=== PATIENT | female | born 1955 | race Caucasian/White ===

== ENCOUNTER → 2017-10-16 | Outpatient (CLI) | payer OTHER ==
[~2017-10-16] MED LIST: AMLO10TA4 PO; GABA600T2 PO; INDO25CA PO; LISI40TA PO; METF500T27 PO; SERT100T5 PO
== END | disposition home or self-care (01) ==
LOC: CFH 06:41
PROVIDERS: ATTEND Registered Nurse
DX: M50.30 Other cervical disc degeneration, unspecified cervical region (principal); M51.34 Other intervertebral disc degeneration, thoracic region; G95.89 Other specified diseases of spinal cord
CPT/HCPCS: 72050; 72141; 72146

== ENCOUNTER 2017-10-17 11:16 | Emergency (ER) | payer OTHER ==
[~2017-10-17] VITALS: Ht 154.9 cm; Wt 107.1 kg
[2017-10-17 11:17] VITALS: BP 153/91
[2017-10-17 12:21] LABS: BASOPHILS # (AUTO) 0.04 x10^3/uL (0-0.1); BASOPHILS % (AUTO) 0 % (0-1); EOSINOPHILS # (AUTO) 0.25 x10^3/uL (0-0.4); EOSINOPHILS % (AUTO) 3 % (1-7); LYMPHOCYTES # (AUTO) 2.98 x10^3/uL (1-3.4); LYMPHOCYTES % (AUTO) 31 % (22-44); MD NO; MEAN CORPUSCULAR HEMOGLOBIN 29.1 pg (27.0-34.8); MEAN CORPUSCULAR HGB CONC 33.7 g/dL (32.4-35.8); MEAN CORPUSCULAR VOLUME 86.3 fL (80-100); MEAN PLATELET VOLUME 7.4 fL (7.4-10.4); MONOCYTES # (AUTO) 0.66 x10^3/uL (0.2-0.8); MONOCYTES % (AUTO) 7 % (2-9); NEUTROPHILS # (AUTO) 5.68 x10^3/uL (1.8-6.8); NEUTROPHILS % (AUTO) 59 % (42-75); PLATELET COUNT 308 x10^3/uL (130-400); RED BLOOD COUNT 5.07 x10^6/uL (3.82-5.3); RED CELL DISTRIBUTION WIDTH 13.7 % (9.6-15.2)
[2017-10-17 12:28] LABS: ANION GAP 8 mmol/L (5-15); CHLORIDE 110 mmol/L (98-107); CREATININE 0.71 mg/dL (0.55-1.02)
[2017-10-17 12:29] LABS: ALANINE AMINOTRANSFERASE 39 U/L (12-78); ALBUMIN 3.5 g/dL (3.4-5.0)
[2017-10-17 12:31] LABS: ALKALINE PHOSPHATASE 109 U/L (45-117); BILIRUBIN,TOTAL 0.4 mg/dL (0.2-1.0); TOTAL PROTEIN 7.3 g/dL (6.4-8.2)
[2017-10-17] MEDS ORDERED: METF500T27 PO (13:55)
[2017-10-17] MEDS ORDERED: AMLO10TA4 PO (13:55)
[2017-10-17] MEDS ORDERED: GABA600T2 PO (13:55)
[2017-10-17] MEDS ORDERED: INDO25CA PO (13:55)
[2017-10-17] MEDS ORDERED: SERT100T5 PO (13:55)
[2017-10-17] MEDS ORDERED: LISI40TA PO (13:55)
== END 2017-10-17 14:14 | disposition home or self-care (01) ==
LOC: ED 13:58
DX: R10.12 Left upper quadrant pain (principal); E11.9 Type 2 diabetes mellitus without complications; I10 Essential (primary) hypertension; Z90.49 Acquired absence of other specified parts of digestive tract
CPT/HCPCS: 36415; 80053; 83690; 85025; 99284

== ENCOUNTER → 2017-10-29 | Outpatient (CLI) | payer OTHER | END | disposition home or self-care (01) | LOC: CFH 07:28 | PROVIDERS: ATTEND Family Medicine | DX: K76.89 Other specified diseases of liver (principal) | CPT/HCPCS: 76700 ==

== ENCOUNTER 2017-12-04 09:03 | Day surgery (SDC) | payer OTHER ==
[~2017-12-04] VITALS: Ht 154.9 cm; Wt 108.9 kg
[2017-12-04] MEDS ORDERED: SODIUM CHLORIDE 0.9% 1,000 ML IV SCH (09:43)
[2017-12-04 10:07] VITALS: BP 147/91
[2017-12-04] MEDS ORDERED: LIDOCAINE-MPF 1%, 5ML ONE (10:12)
[2017-12-04] MEDS ORDERED: FENTANYL PF 100 MCG/2ML ONE (10:22)
[2017-12-04] MEDS ORDERED: NALOXONE 1 MG/ML, 2ML ONE (10:22)
[2017-12-04] MEDS ORDERED: MIDAZOLAM 1 MG/ML, 5ML ONE (10:22)
[2017-12-04] MEDS ORDERED: FLUMAZENIL 0.1 MG/1 ML, 5ML ONE (10:22)
[2017-12-04] MEDS ORDERED: LIDOCAINE-MPF 1%, 2ML ONE (11:09)
[2017-12-04] MEDS ORDERED: IBUPROFEN 600 MG TABLET PO ONE (13:00)
== END 2017-12-04 13:45 ==
LOC: OUT 09:03
PROVIDERS: ATTEND Registered Nurse
DX: M48.8X4 Other specified spondylopathies, thoracic region (principal); I10 Essential (primary) hypertension; G43.909 Migraine, unspecified, not intractable, without status migrainosus; J45.909 Unspecified asthma, uncomplicated; Z88.5 Allergy status to narcotic agent; Z88.8 Allergy status to other drugs, medicaments and biological substances; Z91.040 Latex allergy status; Z87.39 Personal history of other diseases of the musculoskeletal system and connective tissue; Z90.710 Acquired absence of both cervix and uterus; Z98.890 Other specified postprocedural states
CPT/HCPCS: 20225; 77012; 82962; 88305; 99156; 99157; J2250; J3010; J3490; J2310; J7030

== ENCOUNTER → 2018-04-28 | Outpatient (CLI) | payer OTHER ==
[~2018-04-28] MED LIST changes: -INDO25CA PO; +INDO25CA5 PO
== END | disposition home or self-care (01) ==
LOC: RAD 07:15
PROVIDERS: ATTEND Family Medicine
DX: M25.78 Osteophyte, vertebrae (principal); R60.9 Edema, unspecified; M47.894 Other spondylosis, thoracic region
CPT/HCPCS: 72146